=== PATIENT | female | born 1990 | race Caucasian/White ===

== ENCOUNTER 2019-01-05 01:48 | Emergency (ER) | payer BC, MEDICAID ==
--- NOTE | 2019-01-05 08:43 | EDM.PDOC ---
ED HPI GENERAL MEDICAL PROBLEM - General Chief Complaint: FLASK PUSHER Problem Stated Complaint: in labor Time Seen by Provider: 01/05/19 02:01 Source of Information: Reports: Patient, Family, RN History Limitations: Reports: No Limitations - History of Present Illness INITIAL COMMENTS - FREE TEXT/NARRATIVE: 40 wk gestation woman in active labor and contraction every 2 minutes. She has been having mild contractions today and stronger after midnight and now closer together. 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 Pt is breathing well through the contractions. FHT 135 and variable. FHM strip ran and strong contractions noted and good variability and good FHT with contraction. Sterile vaginal exam completed, no ROM and no bloody show. Cervix is high, thick and 1 cm dilated. Abdominal Pain Score (Numeric/FACES): 10 - Related Data Allergies Allergy/AdvReac Type Severity Reaction Status Date / Time No Known Allergies Allergy Verified 05/04/15 16:11 Home Meds: Home Meds Acetaminophen [Tylenol Extra Strength] 500 mg PO BID PRN 05/04/15 [History] Ferrous Sulfate 1 tab PO DAILY 05/04/15 [History] Mv-Mn/Iron/FA/Herbal/Digestive [ One Tablet] 1 each PO DAILY 05/04/15 [ History] Past Medical History FLASK PUSHER History: Reports: - Past Surgical History Respiratory Surgical History: Reports: None Female Surgical History: Reports: Section Social & Family History - Family History Family Medical History: Unobtainable - Tobacco Use Smoking Status *Q: Never Smoker Second Hand Smoke Exposure: No - Caffeine Use Caffeine Use: Reports: None - Recreational Drug Use Recreational Drug Use: No ED ROS GENERAL - Review of Systems Review Of Systems: See Below Constitutional: Reports: No Symptoms HEENT: Reports: No Symptoms Respiratory: Reports: No Symptoms Cardiovascular: Reports: No Symptoms GI/Abdominal: Reports: Other (contractions). Denies: Constipation, Diarrhea, Nausea : Denies: Discharge, Dysuria Musculoskeletal: Reports: No Symptoms Skin: Reports: No Symptoms ED EXAM - Physical Exam Exam: See Below Exam Limited By: No Limitations General Appearance: Alert, No Apparent Distress Ears: Hearing Grossly Normal Nose: Normal Inspection Throat/Mouth: Normal Voice, No Airway Compromise Head: Atraumatic, Normocephalic Neck: Normal Inspection, Supple, Non-Tender Respiratory/Chest: No Respiratory Distress, Lungs Clear, Normal Breath Sounds Cardiovascular: Normal Peripheral Pulses, Regular Rate, Rhythm GI/Abdominal Exam: Soft, Non-Tender Neurological: Alert, Oriented, Normal Cognition Psychiatric: Normal Affect, Normal Mood Skin Exam: Warm, Dry, Normal Color Course - Vital Signs Last Recorded V/S: Last Vital Signs Temp 97.5 F 01/05/19 01:50 Pulse 98 01/05/19 01:50 Resp 20 01/05/19 01:50 BP 157/52 H 01/05/19 01:50 Pulse Ox 99 01/05/19 01:50 Departure - Departure Time of Disposition: 02:40 Disposition: DC/Tfer to [facility] 02 Clinical Impression: Active labor, 40 weeks gestation of , History of delivery - Discharge Information *PRESCRIPTION DRUG MONITORING PROGRAM REVIEWED*: Not Applicable *COPY OF PRESCRIPTION DRUG MONITORING REPORT IN PATIENT BRISE[place]: Not Applicable Referrals: PCP,None [Primary Care Provider] - Forms: ED Department Discharge - Assessment/Plan Plan: Contacted Dr Tripp through direct connect, [facility] ambulance with provider. This delivery is . BLS here and will transfer pt to [facility]. This provider went with EMS ambulance team for transport.
== END 2019-01-05 02:40 ==
LOC: LB.ED 01:48
DX: O47.1 False labor at or after 37 completed weeks of gestation (principal); O34.219 Maternal care for unspecified type scar from previous cesarean delivery; Z3A.40 40 weeks gestation of pregnancy
CPT/HCPCS: 99284; A0425; A0429